=== PATIENT | male | born 1980 | race Caucasian/White ===

== ENCOUNTER 2018-05-24 20:20 | Emergency (ER) | payer MEDICAID ==
[~2018-05-24] VITALS: Ht 193 cm; Wt 87.9 kg
[2018-05-24 21:17] VITALS: BP 121/84
--- NOTE | 2018-05-24 21:17 | NUR ---
PT BLADDER SCANNED, APPROXIMATELY 65ML IN BLADDER
[2018-05-24 21:36] LABS: MICROSCOPIC INDICATED
[2018-05-24 21:48] LABS: CULTURE INDICATED? NO
== END 2018-05-24 22:24 | disposition home or self-care (01) ==
LOC: ED 21:04
DX: N20.2 Calculus of kidney with calculus of ureter (principal); F17.200 Nicotine dependence, unspecified, uncomplicated
CPT/HCPCS: 81001; 99284